=== PATIENT | female | born 1965 | race Caucasian/White ===

== ENCOUNTER → 2022-01-12 | Outpatient (CLI) | payer SELFPAY ==
--- NOTE | 2022-01-12 12:38 | CT_ITS ---
EXAM: CT NECK WITH INTRAVENOUS CONTRAST CLINICAL INDICATION: SWELLING TECHNIQUE: Helically acquired images were obtained of the neck with intravenous contrast. This CT exam was performed using one or more of the following dose reduction techniques: automated exposure control, adjustment of the mA and/or kV according to patient size, and/or use of iterative reconstruction technique. This report was created using [employer] technology. CONTRAST: 75 cc of Isovue-370. RADIATION DOSE: CTDIvol = 20.59 mGy, DLP = 658.60 mGy-cm. COMPARISON: None. FINDINGS: NASOPHARYNX: Unremarkable. SUPRAHYOID NECK: Unremarkable. Oropharynx, oral cavity, parapharyngeal space and retropharyngeal space are unremarkable. INFRAHYOID NECK: Unremarkable. The larynx, hypopharynx and supraglottis are unremarkable. SUBMANDIBULAR/PAROTID GLANDS: Unremarkable. Glands are normal in size. THYROID: Unremarkable. No enlarged or calcified nodules. BONES/JOINTS: No acute fracture. SOFT TISSUES: Unremarkable. No soft tissue mass in the area of interest marked by a BB. VASCULATURE: No acute findings. LYMPH NODES: Unremarkable. No lymphadenopathy. LUNG APICES: Unremarkable as visualized. CT/Soft Tissue Neck WITH Contrast IMPRESSION: Normal neck CT. Electronically Signed: Jeovanny Amaya MD at 0:43 EDT ,
== END | disposition home or self-care (01) ==
PROVIDERS: Visit Provider Otolaryngology
DX: R22.1 Localized swelling, mass and lump, neck (principal)
CPT/HCPCS: 70491; Q9967

== ENCOUNTER → 2022-03-15 | Outpatient (CLI) | payer SELFPAY ==
--- NOTE | 2022-03-15 08:37 | EKG12_ITS ---
Test Reason : PRE OP Blood Pressure : / mmHG Vent. Rate : 058 BPM Atrial Rate : 058 BPM P-R Int : 150 ms QRS Dur : 106 ms QT Int : 410 ms P-R-T Axes : 040 -42 030 degrees QTc Int : 402 ms Sinus bradycardia Left axis deviation Abnormal ECG Confirmed by YUNIOR PATEL, BART ([id number]), magazine editor ISIDRO PRINGLE ([id number]) on 03/16/2022 10:51:33 A M Referred By: Jsoh Dobbins Confirmed By:YOAV MOJICA MD
[2022-03-15 09:50] LABS: Hematocrit 41.1 % (37-47); Hemoglobin 13.9 g/dL (12.0-15.0); Mean Corp Hgb Conc 33.8 g/dL (32-36); Mean Corpuscular Hgb 29.2 pg (27.0-32.0); Mean Corpuscular Volume 86.3 fL (81-99); Mean Platelet Vol. 10.6 fl (6.2-12.0); Platelet Count 222 K/mm3 (150-450); RBC Distribution Width CV 13.1 % (11.6-14.6); RBC Distribution Width SD 41.1 fl (35.1-43.9); Red Blood Count 4.76 M/mm3 (4.2-5.4); White Blood Count 6.2 K/mm3 (4.4-11.0)
[2022-03-15 10:18] LABS: Anion Gap 2 (5-15); BUN 15 mg/dL (7-18); BUN/Creat Ratio 31.4 RATIO (10-20); Calcium,Total 9.3 mg/dL (8.5-10.1); Chloride 110 mmol/L (98-107); Creatinine, Serum 0.48 mg/dL (0.55-1.02); EST Glomerular Filtration Rate 143 mL/min (>60); Est Glom Filt Rate - Afr Amer 173 mL/min (>60); Glucose 76 mg/dL (74-106); Potassium 4.2 mmol/L (3.5-5.1); Sodium Level 141 mmol/L (136-145)
== END | disposition home or self-care (01) ==
PROVIDERS: Referring Provider Otolaryngology; Visit Provider Otolaryngology
DX: Z01.810 Encounter for preprocedural cardiovascular examination (principal); Z01.812 Encounter for preprocedural laboratory examination
CPT/HCPCS: 36415; 80048; 85027; 93005

== ENCOUNTER → 2022-03-19 | Outpatient (CLI) | payer SELFPAY ==
--- NOTE | 2022-03-19 12:50 | MASS_PTH ---
PATIENT: ANDRE REED LOC: [facility] U#:[id number] AGE/SX: 56/F ROOM: RE03/19/[address]: Dr. Josh Dobbins MD : 1965 BED: DIS: 03/19/2022 SPEC #: [id number] RECD: 03/19/22 14:46 STATUS: PATTY REMayr #: [id number] ALEE: 03/19/22 12:[address]: Josh Dobbins DEPT: SURGICAL PATHOLOGY RECD BY: Halina Liu ENTERED: 03/20/22 08:01 SP TYPE: Mass OTHR DR: No Primary Care Phys [facility] Tissues: Neck, NOS Procedures: Surgery Specimen Level III HEADER OPERATION: Excision right neck mass PRE-OP DIAGNOSIS: Localized swelling, mass and lump neck TISSUE SUBMITTED: Right neck mass MICROSCOPIC DIAGNOSIS Right neck mass, excisional biopsy: Mature adipose tissue, consistent with lipoma. TATE:wander 03/21/2022 MICROSCOPIC DESCRIPTION Slides are reviewed. GROSS DESCRIPTION Received in fixative is one container labeled with the patient's name and designated right neck mass. The specimen consists of a partially disrupted piece of yellow adipose tissue measuring 4.5 x 3 x 1.5 cm. Sections reveal yellow adipose cut surfaces without area of hemorrhage, necrosis or cystic degeneration. Electrical Power Engineer sections are submitted in two cassettes. / SJ:wander 03/20/2022 TC:1 CPT: 41418
== END | disposition home or self-care (01) ==
PROVIDERS: Referring Provider Otolaryngology; Visit Provider Otolaryngology
DX: R22.1 Localized swelling, mass and lump, neck (principal)
CPT/HCPCS: 88304; 88305